=== PATIENT | male | born 1960 | race African-American/Black ===

== ENCOUNTER 2018-08-26 13:26 | Outpatient (CLI) | payer MEDICARE ==
--- NOTE | 2018-08-26 13:47 | RAD ---
RIGHT KNEE: 08/26/18 Four views. HISTORY: Knee pain. Moderate degenerative changes are noted. There is loss of medial joint space. There is spurring from the medial tibial and femoral condyles with spurring from the patella with narrowing of the patellofe moral joint. No fracture. No joint effusion. IMPRESSION: Moderate degenerative changes of right knee as described. POS: OFF
== END 2018-08-26 13:27 | disposition home or self-care (01) ==
LOC: RAD-FRANK 13:26
PROVIDERS: ATTEND Nurse Practitioner Family
DX: G89.29 Other chronic pain (principal); M17.11 Unilateral primary osteoarthritis, right knee

== ENCOUNTER 2019-01-30 08:10 | Day surgery (SDC) | payer MEDICARE ==
[2019-01-30] MEDS ORDERED: PROPOFOL 200 MG/20 ML VIAL ONE (10:00)
[2019-01-30] MEDS ORDERED: Lidocaine 1% PF 5 ML VIAL ONE (10:00)
--- NOTE | 2019-01-30 11:25 | OP ---
DATE OF PROCEDURE: 01/30/2019 MATERIAL RECLAIMER SURGEON: None. PROCEDURES PERFORMED: Colonoscopy with polypectomy. INDICATION: A 58-year-old man, here for first average risk screening colonoscopy. He has a prior history of right hemicolectomy with ileostomy and subsequent ileostomy takedown with anastomosis in the transverse colon. MEDICATIONS: See Anesthesia record. FINDINGS: After discussion of the risks, benefits, and alternatives of the procedure, informed consent was obtained and witnessed. Pre-endoscopic cardiopulmonary examination was satisfactory. Time-out was performed before sedation was achieved. Sedation was achieved with Anesthesia assistance in the endoscopy unit. Digital rectal exam was performed, which was unremarkable. A [employer]ax adult colonoscope was inserted into the anus and passed forward to the ileocolonic anastomosis in the usual fashion. The anastomosis was at the level of the mid transverse colon. The anastomotic area looks healthy and widely patent. The distal ileum was intubated and examined to 10 cm and the ileal mucosa also appears normal. The colonoscope was slowly withdrawn in a gradual circumferential manner with careful examination of the entire colonic mucosa. The quality of the prep was good. In the sigmoid colon, there was a single sessile polyp measuring about 2 mm in diameter. This was completely removed with cold snare and retrieved for pathology. The colonoscope was then retroflexed in the rectum demonstrating internal hemorrhoids. The colonoscope was completely withdrawn and the patient allowed to recover. The patient tolerated the procedure well. There were no immediate postprocedure complications. IMPRESSION: 1. Healthy ileocolonic anastomosis at the level of the mid transverse colon. 2. A 2 mm sigmoid colon polyp, completely removed with cold snare and retrieved for pathology. 3. Internal hemorrhoids. RECOMMENDATIONS: 1. Follow up pathology on the colon polyp. 2. Repeat colonoscopy interval to be determined based on pathology results. If the polyp is an adenoma, repeat colonoscopy for surveillance in 5 years. If it is hyperplastic, repeat colonoscopy for screening in 10 years. 3. Resume [place] tomorrow. Job ID: [id number]
== END 2019-01-30 11:10 | disposition home or self-care (01) ==
LOC: SDC 08:10
PROVIDERS: ATTEND Internal Medicine
PROC: 0DBN8ZZ Excision of Sigmoid Colon, Via Natural or Artificial Opening Endoscopic (ICD-10-PCS; principal; 2019-01-30)
DX: Z12.11 Encounter for screening for malignant neoplasm of colon (principal); K63.5 Polyp of colon; E11.9 Type 2 diabetes mellitus without complications; I48.91 Unspecified atrial fibrillation; F17.290 Nicotine dependence, other tobacco product, uncomplicated; E05.90 Thyrotoxicosis, unspecified without thyrotoxic crisis or storm; I73.9 Peripheral vascular disease, unspecified; M19.90 Unspecified osteoarthritis, unspecified site; N17.9 Acute kidney failure, unspecified; Z79.01 Long term (current) use of anticoagulants; Z79.82 Long term (current) use of aspirin; Z79.899 Other long term (current) drug therapy
CPT/HCPCS: 88305; J2001; J2704

== ENCOUNTER 2023-04-04 18:06 | Emergency (ER) | payer MEDICARE ==
[2023-04-04] MEDS ORDERED: Ketorolac Tromethamine 30 MG (1 mL) VIAL ONE (19:10)
[2023-04-04] MEDS ORDERED: Cyclobenzaprine 10 MG TAB ONE (19:11)
== END 2023-04-04 20:24 | disposition home or self-care (01) ==
LOC: ERS 18:06
DX: S39.012A Strain of muscle, fascia and tendon of lower back, initial encounter (principal); I10 Essential (primary) hypertension; E78.5 Hyperlipidemia, unspecified; F17.290 Nicotine dependence, other tobacco product, uncomplicated; X58.XXXA Exposure to other specified factors, initial encounter; Z86.73 Personal history of transient ischemic attack (TIA), and cerebral infarction without residual deficits; Z79.899 Other long term (current) drug therapy
CPT/HCPCS: 72100; 96374; J1885

== ENCOUNTER 2023-04-06 15:36 | Inpatient (IN) | payer MEDICARE ==
[~2023-04-06 15:36] MED LIST: Iopamidol-370 76% 500 ML MDV (1 ML CHARGE) ONE
[2023-04-06] MEDS ORDERED: Acetaminophen 500 MG TAB ONE (16:14)
[2023-04-06] MEDS ORDERED: Diazepam 5 MG TAB ONE (16:15)
[2023-04-06 17:15] LABS: #Monocytes 0.5 thou/uL (0.11-0.59); #Neutrophils 8.6 thou/uL (1.40-6.50); %Basophils 0.3 % (0.0-1.0); %Eosinophils 0.1 % (0.0-10.0); %Neutrophils 88.4 % (42.0-75.0); Hematocrit 49.6 % (42.0-52.0); Hemoglobin 16.2 g/dL (14.0-18.0); Mean Corpuscular HGB CONC 32.7 g/dL (32.0-36.0); Mean Corpuscular Hemoglobin 32.1 pg (27.0-31.0); Mean Corpuscular Volume 98.2 fl (78.0-98.0); Mean Platelet Volume 10.2 fL (7.4-10.4); Platelet Count 124 10x3/uL (130-400); Red Blood Cell (RBC) Count 5.05 mill/uL (4.70-6.10); White Blood Cell (WBC) Count 9.7 10x3/uL (4.8-10.8)
[2023-04-06 17:30] LABS: ALT (SGPT) 11 U/L (8-55); AST (SGOT) 16 U/L (5-34); Albumin 4.1 g/dL (3.4-4.8); Alkaline Phosphatase 58 U/L (40-110); Anion Gap 16 mmol/L (10-20); BUN (Urea Nitrogen) 16 mg/dL (8.4-25.7); Bilirubin, Total 1.5 mg/dL (0.2-1.2); Calc. Creatinine Clearance 0 mL/min (70-130); Calcium 9.5 mg/dL (7.8-10.44); Carbon Dioxide 21 mmol/L (23-31); Chloride 106 mmol/L (98-107); Estimated GFR 68; Globulin 3.6 g/dL (2.4-3.5); Glucose 160 mg/dL (80-115); Potassium 4.7 mmol/L (3.5-5.1); Protein, Total 7.7 g/dL (5.8-8.1); Sodium 138 mmol/L (136-145)
[2023-04-06 20:10] LABS: Bacteria/HPF None Seen HPF (None Seen); Bilirubin Negative (Negative); Blood, Urine 2+ (Negative); CAUTI Indications for Culture Pelvic or flank pain; Clarity Clear (Clear); Glucose, Urine (Dipstick) Greater than 1000 mg/dL (Negative); Ketone, Urine Trace mg/dL (Negative); Leukocyte Negative Leu/uL (Negative); Nitrite Negative (Negative); Protein, Urine (Dipstick) 200 mg/dL (Neg-Trace); Specific Gravity, Urine 1.044 (1.002-1.036); Squamous Epithelial 0-3 HPF (0-3); Urobilinogen Normal mg/dL (Less than 2); WBC/HPF 0-3 HPF (0-3)
[2023-04-06 20:12] LABS: Urine Culture Reflex No No
[2023-04-06] MEDS ORDERED: Morphine 4 MG/ML VIAL ONE (20:59)
[2023-04-06] MEDS ORDERED: Ondansetron PF 4 MG/2 ML Vial IVP PRN (21:18)
[2023-04-06] MEDS ORDERED: Acetaminophen 650 MG Suppository PR PRN (21:18)
[2023-04-06] MEDS ORDERED: Ondansetron ODT 4 MG TAB PO PRN (21:18)
[2023-04-06] MEDS ORDERED: Cyclobenzaprine 10 MG TAB PO PRN (21:54)
[2023-04-06] MEDS ORDERED: Lorazepam 1 MG TAB PO PRN ×2 (22:07→22:54)
[2023-04-06] MEDS ORDERED: Electrolyte Replacement Protocol 1 EACH FS SCH (22:15)
[2023-04-06] MEDS ORDERED: Electrolyte Replacement Protocol 1 EACH FS PRN (22:15)
[2023-04-06] MEDS ORDERED: Dextrose 50% Abboject 50 ML SYRINGE SLOW IVP PRN (22:25)
[2023-04-06] MEDS ORDERED: Dextrose 5% in Water 1,000 ML IV PRN (22:25)
[2023-04-06] MEDS ORDERED: Glucagon 1 MG/ML KIT IM PRN (22:25)
[2023-04-06 22:28] LABS: Amphetamine Not Detected (NotDetected); Barbiturates Screen Not Detected (NotDetected); Benzodiazepine Screen Not Detected (NotDetected); Cocaine Metabolite Screen Not Detected (NotDetected); Methadone Not Detected (NotDetected); Methamphetamine Not Detected (NotDetected); Opiate Screen Not Detected (NotDetected); Oxycodone Screen Not Detected (NotDetected); Phencyclidine (PCP) Not Detected (NotDetected); THC/Cannabinoid Screen Not Detected (NotDetected); Tricyclic Screen Detected (NotDetected)
[2023-04-06 22:43] LABS: Bilirubin, Direct 0.7 mg/dL (0.1-0.3); Magnesium 1.9 mg/dL (1.6-2.6); Phosphorus 2.1 mg/dL (2.3-4.7)
[2023-04-06 23:45] VITALS: BMI 31.2
[2023-04-07] MEDS: Cyclobenzaprine 10 MG TAB PO PRN (00:15)
[2023-04-07] MEDS: HYDROcodone/Acetaminophen 5/325 mg Tablet PO PRN (00:15)
[2023-04-07] MEDS: Acetaminophen 325 MG TAB PO PRN ×2 (06:03→20:48)
[2023-04-07] MEDS ORDERED: Acetaminophen 650 MG Suppository PR PRN (06:24)
[2023-04-07] MEDS ORDERED: Carvedilol 25 MG TAB PO SCH (08:00)
[2023-04-07] MEDS ORDERED: Enoxaparin 40 MG (0.4 mL) SYRINGE SC SCH (09:00)
[2023-04-07] MEDS ORDERED: Folic Acid 1 MG TAB PO SCH (09:00)
[2023-04-07] MEDS ORDERED: Multivit, Therapeutic 1 TAB PO SCH (09:00)
[2023-04-07] MEDS ORDERED: Famotidine 20 MG TAB PO SCH (09:00)
[2023-04-07] MEDS ORDERED: Apixaban 5 MG TAB PO SCH (09:00)
[2023-04-07] MEDS: Apixaban 5 MG TAB PO SCH (09:40)
[2023-04-07] MEDS: Carvedilol 25 MG TAB PO SCH (09:41)
[2023-04-07] MEDS: Folic Acid 1 MG TAB PO SCH (09:41)
[2023-04-07] MEDS: Multivit, Therapeutic 1 TAB PO SCH (09:41)
[2023-04-07] MEDS: Lisinopril 2.5 MG TAB PO SCH (09:41)
[2023-04-07] MEDS: Propranolol HCl 20 MG TAB PO SCH (09:41)
[2023-04-07] MEDS: Famotidine 20 MG TAB PO SCH (09:43)
[2023-04-07] MEDS: Sodium Chloride 0.9% 1,000 ML IV SCH (11:47)
[2023-04-07] MEDS: Ketorolac Tromethamine 30 MG (1 mL) VIAL IVP PRN (11:48)
[2023-04-07] MEDS: Piperacillin/Tazobactam 3.375 GM in Sodium Chloride 0.9% 100 ML IVPB SCH ×3 (11:50→16:52)
[2023-04-07] MEDS: Guaifenesin DM 100-10/5 ML UDCUP PO PRN (12:16)
[2023-04-07] MEDS ORDERED: HumaLOG 300 UNITS/3 ML VIAL SC PRN (19:15)
[2023-04-07] MEDS: Simvastatin 10 MG TAB PO SCH (20:48)
[2023-04-07] MEDS ORDERED: Lorazepam 1 MG TAB PO PRN ×2 (22:07)
[2023-04-07] MEDS: Benzocaine/Menthol 1 LOZ LOZ PO PRN (23:08)
[2023-04-08 10:31] LABS: #Eosinphils 0.1 thou/uL (0.0-0.7); #Neutrophils 4.8 thou/uL (1.40-6.50); %Basophils 0.4 % (0.0-1.0); %Eosinophils 1.9 % (0.0-10.0); %Lymphocytes 13.1 % (21.0-51.0); %Monocytes 14.2 % (0.0-10.0); %Neutrophils 70.1 % (42.0-75.0); Hematocrit 42.1 % (42.0-52.0); Hemoglobin 14.2 g/dL (14.0-18.0); Mean Corpuscular HGB CONC 33.7 g/dL (32.0-36.0); Mean Corpuscular Hemoglobin 32.5 pg (27.0-31.0); Mean Corpuscular Volume 96.3 fl (78.0-98.0); Mean Platelet Volume 10.8 fL (7.4-10.4); RBC Distribution Width 13.2 % (11.5-14.5); Red Blood Cell (RBC) Count 4.37 mill/uL (4.70-6.10); White Blood Cell (WBC) Count 6.9 10x3/uL (4.8-10.8)
[2023-04-08 10:49] LABS: Anion Gap 14 mmol/L (10-20); BUN (Urea Nitrogen) 31 mg/dL (8.4-25.7); Calc. Creatinine Clearance 54 mL/min (70-130); Calcium 9.5 mg/dL (7.8-10.44); Carbon Dioxide 21 mmol/L (23-31); Chloride 103 mmol/L (98-107); Estimated GFR 43; Glucose 146 mg/dL (80-115); Potassium 4.4 mmol/L (3.5-5.1); Sodium 134 mmol/L (136-145)
[2023-04-08 11:00] LABS: Platelet Count 86 10x3/uL (130-400)
[2023-04-08] MEDS: Vancomycin (BATCH) 2 GM in Premix 1 BAG IVPB SCH (13:22)
[2023-04-08] MEDS: Sodium Chloride 0.9% 1,000 ML IV SCH (13:23)
[2023-04-08] MEDS ORDERED: Lorazepam 1 MG TAB PO PRN ×2 (22:07)
[2023-04-09 06:25] LABS: #Eosinphils 0.1 thou/uL (0.0-0.7); #Neutrophils 5.6 thou/uL (1.40-6.50); %Basophils 0.5 % (0.0-1.0); %Eosinophils 1.2 % (0.0-10.0); %Lymphocytes 12.1 % (21.0-51.0); %Monocytes 13.1 % (0.0-10.0); %Neutrophils 72.8 % (42.0-75.0); Hemoglobin 13.1 g/dL (14.0-18.0); Mean Corpuscular HGB CONC 33.6 g/dL (32.0-36.0); Mean Corpuscular Hemoglobin 32.3 pg (27.0-31.0); Mean Corpuscular Volume 96.1 fl (78.0-98.0); Mean Platelet Volume 11.5 fL (7.4-10.4); RBC Distribution Width 13.3 % (11.5-14.5); Red Blood Cell (RBC) Count 4.06 mill/uL (4.70-6.10); White Blood Cell (WBC) Count 7.7 10x3/uL (4.8-10.8)
[2023-04-09 06:43] LABS: ALT (SGPT) 33 U/L (8-55); AST (SGOT) 53 U/L (5-34); Albumin 3.4 g/dL (3.4-4.8); Alkaline Phosphatase 60 U/L (40-110); Anion Gap 14 mmol/L (10-20); BUN (Urea Nitrogen) 25 mg/dL (8.4-25.7); Bilirubin, Total 1.2 mg/dL (0.2-1.2); CRP (Inflammatory) 27.07 mg/dL (= or < 0.5); Calc. Creatinine Clearance 69 mL/min (70-130); Calcium 9.1 mg/dL (7.8-10.44); Carbon Dioxide 22 mmol/L (23-31); Chloride 108 mmol/L (98-107); Estimated GFR 58; Globulin 3.1 g/dL (2.4-3.5); Glucose 151 mg/dL (80-115); Potassium 4.5 mmol/L (3.5-5.1); Protein, Total 6.5 g/dL (5.8-8.1); Sodium 139 mmol/L (136-145)
[2023-04-09 07:42] LABS: Platelet Count 79 10x3/uL (130-400)
[2023-04-09] MEDS: Magnesium 2 GM/50 ML(in water) 2 GM in Premix 1 BAG IVPB SCH (08:05)
[2023-04-09] MEDS: Enoxaparin 100 MG (1 mL) SYRINGE SC SCH (11:08)
[2023-04-09] MEDS: Vancomycin HCl 750 MG in Sodium Chloride 0.9% 250 ML 250 ML IVPB SCH (13:31)
[2023-04-09] MEDS: CEFAZOLIN 2 GM in Sodium Chloride 0.9% 100 ML IVPB SCH (13:34)
[2023-04-09] MEDS ORDERED: Vancomycin (BATCH) 1.25 GM in Premix 1 BAG IVPB SCH (14:00)
[2023-04-09] MEDS: Thiamine 100 MG TAB PO SCH (20:39)
[2023-04-09] MEDS ORDERED: Lorazepam 0.5 MG TAB PO PRN ×2 (22:07)
[2023-04-09] MEDS ORDERED: Thiamine 100 MG TAB PO SCH (22:15)
[2023-04-10 05:27] LABS: #Eosinphils 0.1 thou/uL (0.0-0.7); #Monocytes 0.7 thou/uL (0.11-0.59); #Neutrophils 4.7 thou/uL (1.40-6.50); %Basophils 0.5 % (0.0-1.0); %Eosinophils 1.7 % (0.0-10.0); %Lymphocytes 16.8 % (21.0-51.0); %Monocytes 9.8 % (0.0-10.0); %Neutrophils 70.9 % (42.0-75.0); Hematocrit 38.3 % (42.0-52.0); Hemoglobin 12.8 g/dL (14.0-18.0); Mean Corpuscular HGB CONC 33.4 g/dL (32.0-36.0); Mean Corpuscular Hemoglobin 31.9 pg (27.0-31.0); Mean Corpuscular Volume 95.5 fl (78.0-98.0); Mean Platelet Volume 11.2 fL (7.4-10.4); Platelet Count 95 10x3/uL (130-400); RBC Distribution Width 13.4 % (11.5-14.5); Red Blood Cell (RBC) Count 4.01 mill/uL (4.70-6.10); White Blood Cell (WBC) Count 6.7 10x3/uL (4.8-10.8)
[2023-04-10 06:22] LABS: Anion Gap 12 mmol/L (10-20); BUN (Urea Nitrogen) 17 mg/dL (8.4-25.7); CRP (Inflammatory) 24.27 mg/dL (= or < 0.5); Calc. Creatinine Clearance 83 mL/min (70-130); Calcium 9.1 mg/dL (7.8-10.44); Carbon Dioxide 20 mmol/L (23-31); Chloride 109 mmol/L (98-107); Estimated GFR 71; Glucose 121 mg/dL (80-115); Potassium 4.1 mmol/L (3.5-5.1); Sodium 137 mmol/L (136-145)
[2023-04-10 12:16] LABS: Vancomycin, Trough 9.6 ug/mL
[2023-04-10] MEDS: Aspirin 81 mg Enteric Coated Tablet PO SCH (13:39)
[2023-04-10] MEDS: CEFAZOLIN 2 GM in Sodium Chloride 0.9% 100 ML IVPB SCH (16:56)
[2023-04-10] MEDS: Atorvastatin Calcium 40 MG TAB PO SCH (20:51)
[2023-04-11 05:51] LABS: Anion Gap 14 mmol/L (10-20); BUN (Urea Nitrogen) 17 mg/dL (8.4-25.7); Calc. Creatinine Clearance 97 mL/min (70-130); Calcium 9.3 mg/dL (7.8-10.44); Carbon Dioxide 19 mmol/L (23-31); Chloride 109 mmol/L (98-107); Estimated GFR 87; Glucose 90 mg/dL (80-115); Sodium 138 mmol/L (136-145)
[2023-04-11] MEDS: Aspirin 81 mg Enteric Coated Tablet PO SCH (08:11)
[2023-04-11] MEDS: Lisinopril 5 MG TAB PO SCH (08:11)
[2023-04-12] MEDS ORDERED: PROPOFOL 200 MG/20 ML VIAL ONE (11:35)
[2023-04-13 06:21] LABS: Hematocrit 39.6 % (42.0-52.0); Hemoglobin 13.1 g/dL (14.0-18.0); Manual Diff?? YES; Mean Corpuscular HGB CONC 33.1 g/dL (32.0-36.0); Mean Corpuscular Volume 96.6 fl (78.0-98.0); Mean Platelet Volume 10.8 fL (7.4-10.4); Platelet Count 188 10x3/uL (130-400); RBC Distribution Width 13.4 % (11.5-14.5); White Blood Cell (WBC) Count 6.8 10x3/uL (4.8-10.8)
[2023-04-13 06:27] LABS: Delete Auto Diff?? YES
[2023-04-13 06:47] LABS: Anion Gap 13 mmol/L (10-20); BUN (Urea Nitrogen) 13 mg/dL (8.4-25.7); CRP (Inflammatory) 13.07 mg/dL (= or < 0.5); Calc. Creatinine Clearance 91 mL/min (70-130); Calcium 9.4 mg/dL (7.8-10.44); Carbon Dioxide 24 mmol/L (23-31); Chloride 107 mmol/L (98-107); Estimated GFR 81; Glucose 173 mg/dL (80-115); Sodium 140 mmol/L (136-145)
[2023-04-13 07:35] LABS: Band 2 % (5-11); CellaVision Operator ID LAB.KW3; Eosinophils 8 % (0-10); Large Platelets 14.7 % (0-5); Lymphocytes 14 % (21-51); Monocytes 4 % (0-10); Neutrophil 68 % (42-75); Platelet Adequacy Comment Platelets Normal; RBC Morphology Within Normal Limits; Reactive Lymphocytes 3 % (0-10); Total Cell Count 102
[2023-04-13] MEDS: metFORMIN 500 MG TAB PO SCH (08:00)
[2023-04-13] MEDS: Carvedilol 25 MG TAB PO SCH (20:40)
[2023-04-13 21:45] VITALS: BP 145/82; TEMP 98.9
== END 2023-04-13 23:35 | disposition short-term general hospital (02) | DRG 871 ==
LOC: ERS 15:36 → T4-B 22:27 → OBSVTOIN 04-07 10:44
PROVIDERS: ADMIT Hospitalist; ATTEND Internal Medicine
PROC: 3E03329 Introduction of Other Anti-infective into Peripheral Vein, Percutaneous Approach (ICD-10-PCS; 2023-04-07)
PROC: B24BZZ4 Ultrasonography of Heart with Aorta, Transesophageal (ICD-10-PCS; principal; 2023-04-12)
DX: A41.01 Sepsis due to Methicillin susceptible Staphylococcus aureus (principal); I33.0 Acute and subacute infective endocarditis; J96.01 Acute respiratory failure with hypoxia; N10 Acute pyelonephritis; N17.9 Acute kidney failure, unspecified; I50.22 Chronic systolic (congestive) heart failure; I13.0 Hypertensive heart and chronic kidney disease with heart failure and stage 1 through stage 4 chronic kidney disease, or unspecified chronic kidney disease; I42.0 Dilated cardiomyopathy; M54.50 Low back pain, unspecified; K43.9 Ventral hernia without obstruction or gangrene; I48.0 Paroxysmal atrial fibrillation; Z79.82 Long term (current) use of aspirin; Z79.899 Other long term (current) drug therapy; Z79.01 Long term (current) use of anticoagulants; N18.9 Chronic kidney disease, unspecified; E03.9 Hypothyroidism, unspecified; E11.22 Type 2 diabetes mellitus with diabetic chronic kidney disease; E78.5 Hyperlipidemia, unspecified; Z98.890 Other specified postprocedural states; F17.290 Nicotine dependence, other tobacco product, uncomplicated; Z95.810 Presence of automatic (implantable) cardiac defibrillator; E11.51 Type 2 diabetes mellitus with diabetic peripheral angiopathy without gangrene
CPT/HCPCS: 36415; 36416; 74177; 80048; 80053; 80202; 80306; 81001; 82248; 83036; 83605; 83735; 84100; 84145; 85025; 86140; 87040; 87077; 87086; 87186; 93005; 93010; 93306; 93312; 96374; G0378; J1650; J1885; J2270; J2543; J2704; J3370; J3475; J3490; J7050; Q9967

== ENCOUNTER 2023-09-03 10:37 | Observation (INO) | payer MEDICARE ==
[2023-09-03] MEDS ORDERED: Propofol 1,000 MG/100 ML VIAL IV ONE (11:57)
[2023-09-03] MEDS ORDERED: fentaNYL 50 mcg/mL 1 mL Vial ONE ×2 (11:57→13:03)
[2023-09-03 11:58] LABS: #Basophils 0.04 10x3/uL (0.0-0.2); %Basophils 0.7 % (0.0-1.0); %Eosinophils 7.2 % (0.0-10.0); %Lymphocytes 25.9 % (21.0-51.0); %Monocytes 5.3 % (0.0-10.0); %Neutrophils 60.7 % (42.0-75.0); Hematocrit 45.8 % (42.0-52.0); Hemoglobin 15.6 g/dL (14.0-18.0); Mean Corpuscular HGB CONC 34.1 g/dL (32.0-36.0); Mean Corpuscular Hemoglobin 32.5 pg (27.0-31.0); Mean Corpuscular Volume 95.4 fL (78.0-98.0); Mean Platelet Volume 10.6 fL (7.4-10.4); Platelet Count 130 10x3/uL (130-400); RBC Distribution Width 13.6 % (11.5-14.5)
[2023-09-03 12:01] LABS: PTT 28.6 sec (22.9-36.1); Prothrombin Time 12.7 sec (12.0-14.7)
[2023-09-03 12:08] LABS: Anion Gap 14 mmol/L (10-20); BUN (Urea Nitrogen) 24 mg/dL (8.4-25.7); Calc. Creatinine Clearance 0 mL/min (70-130); Calcium 9.6 mg/dL (7.8-10.44); Carbon Dioxide 18 mmol/L (23-31); Chloride 109 mmol/L (98-107); Estimated GFR 59; Glucose 199 mg/dL (80-115); Potassium 4.3 mmol/L (3.5-5.1); Sodium 137 mmol/L (136-145)
[2023-09-03] MEDS ORDERED: CEFAZOLIN 2 GM VIAL ONE (12:34)
[2023-09-03] MEDS ORDERED: Gentamicin 80 MG/2 ML VIAL ONE (12:34)
[2023-09-03] MEDS ORDERED: PHENYLEPHRINE-NS 100 MCG/ML 10 ML SYRINGE ONE ×2 (13:15→13:47)
[2023-09-03] MEDS ORDERED: HYDROcodone/Acetaminophen 5/325 mg Tablet PO PRN (14:38)
[2023-09-03] MEDS ORDERED: Acetaminophen/Codeine 30-300mg Tablet PO PRN (14:38)
[2023-09-03] MEDS ORDERED: Acetaminophen 325 MG TAB PO PRN (14:38)
[2023-09-03] MEDS ORDERED: Zolpidem Tartrate 5 MG TAB PO PRN (14:41)
[2023-09-03 17:42] VITALS: BMI 31.2
[2023-09-03] MEDS: Cephalexin 250 MG CAP PO SCH (17:48)
[2023-09-04 08:47] VITALS: BP 140/80; TEMP 97.7
== END 2023-09-04 11:15 | disposition home or self-care (01) ==
LOC: SDC 10:37 → 2SW 15:03
PROVIDERS: ADMIT Internal Medicine Cardiovascular Disease; ATTEND Internal Medicine Cardiovascular Disease
PROC: 0JH608Z Insertion of Defibrillator Generator into Chest Subcutaneous Tissue and Fascia, Open Approach (ICD-10-PCS; principal; 2023-09-03)
PROC: 02H63KZ Insertion of Defibrillator Lead into Right Atrium, Percutaneous Approach (ICD-10-PCS; 2023-09-03)
PROC: 02HK3KZ Insertion of Defibrillator Lead into Right Ventricle, Percutaneous Approach (ICD-10-PCS; 2023-09-03)
DX: I13.0 Hypertensive heart and chronic kidney disease with heart failure and stage 1 through stage 4 chronic kidney disease, or unspecified chronic kidney disease (principal); E11.22 Type 2 diabetes mellitus with diabetic chronic kidney disease; I50.9 Heart failure, unspecified; N18.9 Chronic kidney disease, unspecified; I42.0 Dilated cardiomyopathy; I48.0 Paroxysmal atrial fibrillation; E03.9 Hypothyroidism, unspecified; E78.5 Hyperlipidemia, unspecified; I73.9 Peripheral vascular disease, unspecified; I25.10 Atherosclerotic heart disease of native coronary artery without angina pectoris; Z79.84 Long term (current) use of oral hypoglycemic drugs; Z79.899 Other long term (current) drug therapy; Z79.01 Long term (current) use of anticoagulants; Z87.891 Personal history of nicotine dependence; Z86.73 Personal history of transient ischemic attack (TIA), and cerebral infarction without residual deficits
CPT/HCPCS: 33249; 71045; 80048; 85025; 85610; 85730; 97139; C1721; C1763; J1580; J2704; J3010; 93641; C1777; C1898